=== PATIENT | male | born 1985 | race Caucasian/White ===

== ENCOUNTER 2024-06-22 15:21 | Emergency (ER) | payer MEDICAID ==
[~2024-06-22] VITALS: Ht 180.3 cm; Wt 97.4 kg
[2024-06-22] MEDS ORDERED: GABA-1172 PO (15:52)
[2024-06-22] MEDS ORDERED: BUPR8SUB SL (15:52)
[2024-06-22] MEDS ORDERED: DIVA500T94 PO (15:52)
[2024-06-22 17:21] LABS: BASO % 0.4 % (0.0-1.0); EOS # 0.4 10^3/uL (0.0-0.5); EOS % 5.1 % (0.0-3.0); HEMATOCRIT 43.8 % (42.0-52.0); HEMOGLOBIN 14.2 g/dl (13.5-17.5); LYMPH # 2.2 10^3/uL (1.5-5.0); LYMPH % 27.7 % (24.0-44.0); MEAN CORPUSCULAR HEMOGLOBIN 29.5 pg (27.0-33.0); MEAN CORPUSCULAR HGB CONC 32.4 g/dl (32.0-36.5); MEAN CORPUSCULAR VOLUME 90.9 fl (80.0-96.0); MONO # 0.6 10^3/uL (0.0-0.8); MONO % 8.2 % (2.0-8.0); NEUTROPHILS # 4.5 10^3/uL (1.5-8.5); NEUTROPHILS % 58.3 % (36.0-66.0); PLATELET COUNT, AUTOMATED 194 10^3/uL (150-450); RED BLOOD COUNT 4.82 10^6/uL (4.30-6.10); WHITE BLOOD COUNT 7.8 10^3/uL (4.0-10.0)
[2024-06-22 17:49] LABS: VALPROIC ACID (DEPAKOTE) 40.5 UG/ML (50.0-100.0)
[2024-06-22 17:50] LABS: ETHYL ALCOHOL (ETHANOL) < 0.003 % (0.000-0.010)
[2024-06-22 17:51] LABS: ALBUMIN 3.6 G/DL (3.2-5.2); ALKALINE PHOSPHATASE 98 U/L (40-129); ALT/SGPT 15 U/L (7.0-40); AST/SGOT 11 U/L (<34); BILIRUBIN,DIRECT 0.2 MG/DL (<0.4); BILIRUBIN,TOTAL 0.4 MG/DL (0.3-1.2); BLOOD UREA NITROGEN 18 MG/DL (9-23); CALCIUM LEVEL 9.5 MG/DL (8.5-10.1); CARBON DIOXIDE LEVEL 27 MMOL/L (20-31); CHLORIDE LEVEL 106 MMOL/L (98-107); CREATININE FOR GFR 0.58 MG/DL (0.70-1.30); GLOMERULAR FILTRATION RATE > 60.0 (>60); GLUCOSE, FASTING 103 MG/DL (60-100); POTASSIUM SERUM 3.9 MMOL/L (3.5-5.1); SALICYLATE LEVEL < 3.0 MG/DL (<30); SODIUM LEVEL 142 MMOL/L (136-145); TOTAL PROTEIN 8.2 G/DL (5.7-8.2)
[2024-06-22 17:54] LABS: THYROID STIMULATING HORMONE 1.341 uIU/ML (0.55-4.78)
[2024-06-22] MEDS ORDERED: ARIP1TAB6 PO (17:54)
[2024-06-22] MEDS ORDERED: GABA-1490 PO (18:00)
[2024-06-22] MEDS ORDERED: DIVA500T9 PO (18:00)
[2024-06-22] MEDS ORDERED: TRAZ-189 PO (18:02)
[2024-06-22] MEDS ORDERED: HOME MED LIST COMPLETE! XX SCH (18:05)
[2024-06-22] MEDS: CLOTRIMAZOLE 1% TOPICAL CREAM 30GM TOP ONE (20:00)
[2024-06-22] MEDS ORDERED: CLOT1CRE56 TOP (22:57)
[2024-06-22 23:16] VITALS: BP 118/64; TEMP 98.5; O2SAT 98
[2024-06-23] MEDS ORDERED: CLOT1CRE56 TOP (12:27)
[2024-06-23] MEDS ORDERED: BUPR-69 PO (12:27)
== END 2024-06-22 23:19 | disposition home or self-care (01) ==
LOC: M ED 15:21
DX: B35.3 Tinea pedis (principal); Z59.00 Homelessness unspecified; F19.10 Other psychoactive substance abuse, uncomplicated; Z79.899 Other long term (current) drug therapy; Z88.8 Allergy status to other drugs, medicaments and biological substances

== ENCOUNTER 2024-06-23 00:43 | Emergency (ER) | payer MEDICAID ==
[~2024-06-23] VITALS: Ht 180.3 cm; Wt 97.4 kg
[~2024-06-23 00:43] MED LIST: ARIP1TAB6 PO; BUPR8SUB SL; CLOT1CRE56 TOP; DIVA500T9 PO; DIVA500T94 PO; GABA-1172 PO; GABA-1490 PO; TRAZ-189 PO
[2024-06-23 00:47] VITALS: BP 130/81; TEMP 96.8; O2SAT 97
[2024-06-23] MEDS ORDERED: BUPR-69 PO (12:27)
[2024-06-23] MEDS ORDERED: CLOT1CRE56 TOP (12:27)
== END 2024-06-23 05:00 | disposition left against medical advice (07) ==
LOC: M ED 00:43
DX: Z53.21 Procedure and treatment not carried out due to patient leaving prior to being seen by health care provider (principal)

== ENCOUNTER 2024-06-23 08:21 | Inpatient (IN) | payer MEDICAID ==
[~2024-06-23] VITALS: Ht 175.3 cm; Wt 97.4 kg
[2024-06-23 09:47] LABS: AMPHETAMINES LEVEL URINE NEGATIVE (NEGATIVE); BARBITURATES URINE NEGATIVE (NEGATIVE); BENZODIAZEPINES URINE NEGATIVE (NEGATIVE); CANNABINOIDS URINE NEGATIVE (NEGATIVE); COCAINE METABOLITE URINE NEGATIVE (NEGATIVE); METHADONE URINE NEGATIVE (NEGATIVE); OPIATES URINE NEGATIVE (NEGATIVE); PHENCYCLIDINE URINE NEGATIVE (NEGATIVE)
[2024-06-23] MEDS ORDERED: CLOT1CRE56 TOP (12:27)
[2024-06-23] MEDS ORDERED: BUPR-69 PO (12:27)
[2024-06-23] MEDS ORDERED: HOME MED LIST COMPLETE! XX SCH (12:30)
[2024-06-23 14:10] LABS: HEMATOCRIT 38.9 % (42.0-52.0); HEMOGLOBIN 12.9 g/dl (13.5-17.5); MEAN CORPUSCULAR HEMOGLOBIN 29.9 pg (27.0-33.0); MEAN CORPUSCULAR HGB CONC 33.2 g/dl (32.0-36.5); PLATELET COUNT, AUTOMATED 191 10^3/uL (150-450); RED BLOOD COUNT 4.32 10^6/uL (4.30-6.10); WHITE BLOOD COUNT 7.7 10^3/uL (4.0-10.0)
[2024-06-23 14:31] LABS: ETHYL ALCOHOL (ETHANOL) 0.004 % (0.000-0.010)
[2024-06-23 14:33] LABS: SALICYLATE LEVEL < 3.0 MG/DL (<30); THYROID STIMULATING HORMONE 1.828 uIU/ML (0.55-4.78)
[2024-06-23 14:36] LABS: ALBUMIN 3.4 G/DL (3.2-5.2); ALKALINE PHOSPHATASE 90 U/L (40-129); ALT/SGPT 15 U/L (7.0-40); AST/SGOT 10 U/L (<34); BILIRUBIN,DIRECT 0.2 MG/DL (<0.4); BILIRUBIN,TOTAL 0.4 MG/DL (0.3-1.2); BLOOD UREA NITROGEN 16 MG/DL (9-23); CALCIUM LEVEL 9.3 MG/DL (8.5-10.1); CARBON DIOXIDE LEVEL 27 MMOL/L (20-31); CHLORIDE LEVEL 106 MMOL/L (98-107); CREATININE FOR GFR 0.51 MG/DL (0.70-1.30); GLOMERULAR FILTRATION RATE > 60.0 (>60); GLUCOSE, FASTING 104 MG/DL (60-100); POTASSIUM SERUM 4.1 MMOL/L (3.5-5.1); SODIUM LEVEL 140 MMOL/L (136-145); TOTAL PROTEIN 7.5 G/DL (5.7-8.2)
[2024-06-23] MEDS ORDERED: MOM 30ML SUSPENSION UDC PO PRN (14:55)
[2024-06-23] MEDS ORDERED: MAALOX 30 ML SUSP *UDC PO PRN (14:55)
[2024-06-23] MEDS ORDERED: IBUPROFEN 400MG TAB PO PRN (14:55)
[2024-06-23 16:12] VITALS: BP 133/88; TEMP 97.4; O2SAT 99
[2024-06-23] MEDS: GABAPENTIN 300 MG CAP PO ONE (18:10)
[2024-06-23] MEDS: BUPRENORPHINE HCL 8MG SUBINGUAL TABLET SL ONE (18:12)
[2024-06-23] MEDS: GABAPENTIN 300 MG CAP PO SCH (20:17)
[2024-06-23] MEDS: BUPRENORPHINE HCL 8MG SUBINGUAL TABLET SL SCH (22:01)
[2024-06-23] MEDS: NICOTINE 21MG/24HR 1 EA TRANSDERMAL TD PRN (22:13)
[2024-06-24] MEDS: ARIPiprazole 10 MG TAB PO SCH (12:47)
[2024-06-24 14:47] VITALS: BP 148/87; TEMP 98.7; O2SAT 100
[2024-06-24] MEDS: DIVALPROEX 500MG *ER* TAB PO SCH (20:29)
[2024-06-24] MEDS: NEOSPORIN TOP OINT 15GM TOP SCH (20:53)
[2024-06-25 06:27] VITALS: BP 141/81; TEMP 97.4; O2SAT 99
[2024-06-25] MEDS: diphenhydrAMINE 25MG CAP PO PRN (13:49)
[2024-06-25 16:09] VITALS: BP 134/89; TEMP 98.1; O2SAT 100
[2024-06-25] MEDS: traZODone 50 MG TAB PO PRN (23:31)
[2024-06-25] MEDS: traZODone 100 MG TAB PO PRN (23:31)
[2024-06-27 06:48] VITALS: BP 157/86; TEMP 97.9; O2SAT 99
[2024-06-27 16:34] VITALS: TEMP 98.2; O2SAT 96
[2024-06-27] MEDS: ACETAMINOPHEN 325 MG TAB PO PRN (21:58)
[2024-06-28 06:42] VITALS: BP 136/93; TEMP 96.7; O2SAT 100
[2024-06-29 06:35] VITALS: BP 150/80; TEMP 98.1; O2SAT 99
[2024-06-29 15:03] VITALS: BP 157/88; TEMP 97.1; O2SAT 98
[2024-07-01] MEDS ORDERED: DIVA500T9 PO (08:37)
[2024-07-01] MEDS ORDERED: ARIP1TAB PO (08:37)
[2024-07-01] MEDS ORDERED: GABA-1490 PO (08:37)
[2024-07-01] MEDS ORDERED: TRAZ-257 PO (08:37)
== END 2024-07-01 12:04 | disposition home or self-care (01) | DRG 754 ==
LOC: M ED 08:21 → M ED INP 14:52 → M PSY 16:38
PROVIDERS: ADMIT Psychiatry & Neurology Psychiatry; ATTEND Psychiatry & Neurology Psychiatry
DX: F32.A Depression, unspecified (principal); F11.20 Opioid dependence, uncomplicated; R45.851 Suicidal ideations; F79 Unspecified intellectual disabilities; Z91.51 Personal history of suicidal behavior; Z56.0 Unemployment, unspecified; Z59.02 Unsheltered homelessness; Z79.899 Other long term (current) drug therapy; Z88.8 Allergy status to other drugs, medicaments and biological substances; F17.200 Nicotine dependence, unspecified, uncomplicated; S90.811A Abrasion, right foot, initial encounter; S90.812A Abrasion, left foot, initial encounter; X58.XXXA Exposure to other specified factors, initial encounter; Y92.9 Unspecified place or not applicable; Y93.9 Activity, unspecified; Y99.8 Other external cause status